=== PATIENT | female | born 1995 | race African-American/Black ===

== ENCOUNTER 2017-12-03 04:52 | Emergency (ER) | payer SELFPAY ==
[2017-12-03 05:01] VITALS: BP 114/70; PULSE 77; RESP 20; O2SAT 98
[2017-12-03 05:33] LABS: AUTOMATED NEUTROPHIL # 4.4 TH/MM3 (1.8-7.7); BASOPHIL # 0.1 TH/MM3 (0-0.2); BASOPHIL % 0.9 % (0.0-2.0); EOSINOPHIL # 0.1 TH/MM3 (0-0.4); EOSINOPHIL % 0.8 % (0.0-4.0); HEMATOCRIT 34.7 % (35.0-46.0); HEMOGLOBIN 11.5 GM/DL (11.6-15.3); LYMPH % 17.4 % (9.0-44.0); MEAN CELL VOLUME 81.3 FL (80.0-100.0); MEAN CORPUSCULAR HEMOGLOBIN 27.1 PG (27.0-34.0); MEAN CORPUSCULAR HGB CONC 33.3 % (32.0-36.0); MEAN PLATELET VOLUME 7.7 FL (7.0-11.0); MONO % 6.8 % (0.0-8.0); MONOCYTE # 0.4 TH/MM3 (0-0.9); NEUT % 74.1 % (16.0-70.0); PLATELET COUNT 335 TH/MM3 (150-450); RED BLOOD COUNT 4.26 MIL/MM3 (4.00-5.30); RED CELL DISTRIBUTION WIDTH 14.5 % (11.6-17.2)
[2017-12-03 06:22] LABS: ALBUMIN 3.7 GM/DL (3.4-5.0); ALT (GPT) 16 U/L (9-42); AST (GOT) 20 U/L (16-38); BICARBONATE 25.2 MEQ/L (21.0-32.0); BLOOD UREA NITROGEN 10 MG/DL (7-18); CALCIUM 8.4 MG/DL (8.5-10.1); CHLORIDE 107 MEQ/L (98-107); CREATININE 0.71 MG/DL (0.50-1.00); GLOMERULAR FILTRATION RATE 105 ML/MIN (>89); GLUCOSE,RANDOM 103 MG/DL (74-106); SODIUM (NA) 140 MEQ/L (136-145)
[2017-12-03 06:24] LABS: ACETAMINOPHEN LESS THAN 2.0 MCG/ML (10.0-30.0)
[2017-12-03 06:30] VITALS: BP 122/79; PULSE 67; RESP 18; O2SAT 100
[2017-12-03] MEDS ORDERED: SODIUM CHLOR 0.9% 1000 ML INJ 1,000 ML IV ONE (06:30)
[2017-12-03 06:32] LABS: ALKALINE PHOSPHATASE 83 U/L (45-117); TOTAL BILIRUBIN ADULT 0.3 MG/DL (0.2-1.0); TOTAL PROTEIN 7.5 GM/DL (6.4-8.2)
--- NOTE | 2017-12-03 06:49 | PD ---
HPI . Intoxication Chief Complaint: Alcohol/Drug Intoxication Time Seen by Provider: 04:55 Travel History International Travel<30 days: No Contact w/Intl Traveler<30days: No Traveled to known affect area: No History of Present Illness HPI 22-year-old female presents with intoxicated via EMS. Limited historian secondary to level of intoxication. No obvious trauma PFSH Past Medical History Narrative Medical Unable to obtain Medical History: Unable to Obtain Tetanus Vaccination: Unknown ?: Unknown Past Surgical History Surgical History: Unable to Obtain Social History Alcohol Use: Yes Tobacco Use: No Substance Use: No (denies) Allergies-Medications (Allergen,Severity, Reaction): Coded Allergies: No Known Allergies (Unverified , 12/03/17) Reported Meds & Prescriptions Reported Meds & Active Scripts Active Active Prescriptions or Reported Medications Unobtainable Narrative Medication Unable to obtain Review of Systems ROS Limitations: Intoxication, Altered Mental Status Physical Exam Exam Limitations: Intoxication, Altered Mental Status Narrative GENERAL: Intoxicated, maintaining her own airway, responding to similar SKIN: Warm and dry. Color is normal no diaphoresis cyanosis or pallor HEAD: Atraumatic. Normocephalic. EYES: Pupils equal and round. No scleral icterus. No injection or drainage. ENT: No nasal bleeding or discharge. Mucous membranes pink and moist. NECK: Trachea midline. No JVD. CARDIOVASCULAR: Regular rate and rhythm. RESPIRATORY: No accessory muscle use. Clear to auscultation. Breath sounds equal bilaterally. GASTROINTESTINAL: Abdomen soft, non-tender, nondistended. Hepatic and splenic margins not palpable. MUSCULOSKELETAL: Extremities without clubbing, cyanosis, or edema. No obvious deformities. NEUROLOGICAL: Moving all 4 extremities spontaneously, responding easily to painful stimuli and intermittently to verbal stimuli PSYCHIATRIC: Unable to assess secondary to level of intoxication Data Data Last Documented VS Vital Signs Date Time Temp Pulse Resp B/P (MAP) Pulse Ox O2 Delivery O2 Flow Rate FiO2 12/03/17 05:01 77 20 114/70 (85) 98 Orders Orders Electrocardiogram (12/03/17 04:55) Complete Blood Count With Diff (12/03/17 04:55) Comprehensive Metabolic Panel (12/03/17 04:55) Thyroid Stimulating Hormone (12/03/17 04:55) Urinalysis - C+S If Indicated (12/03/17 04:55) Blood Glucose (12/03/17 04:55) Ecg Monitoring (12/03/17 04:55) Iv Access Insert/Monitor (12/03/17 04:55) Oximetry (12/03/17 04:55) Drug Screen, Random Urine (12/03/17 04:55) Alcohol (Ethanol) (12/03/17 04:55) Tylenol (Acetaminophen) (12/03/17 04:55) Salicylates (Aspirin) (12/03/17 04:55) Beta Hcg (Quant/Titer) (12/03/17 04:55) Sodium Chlor 0.9% 1000 Ml Inj (Ns 1000 M (12/03/17 06:30) Labs Laboratory Tests Test 12/03/17 05:15 12/03/17 06:10 White Blood Count 6.0 TH/MM3 Red Blood Count 4.26 MIL/MM3 Hemoglobin 11.5 GM/DL Hematocrit 34.7 % Mean Corpuscular Volume 81.3 FL Mean Corpuscular Hemoglobin 27.1 PG Mean Corpuscular Hemoglobin Concent 33.3 % Red Cell Distribution Width 14.5 % Platelet Count 335 TH/MM3 Mean Platelet Volume 7.7 FL Neutrophils (%) (Auto) 74.1 % Lymphocytes (%) (Auto) 17.4 % Monocytes (%) (Auto) 6.8 % Eosinophils (%) (Auto) 0.8 % Basophils (%) (Auto) 0.9 % Neutrophils # (Auto) 4.4 TH/MM3 Lymphocytes # (Auto) 1.0 TH/MM3 Monocytes # (Auto) 0.4 TH/MM3 Eosinophils # (Auto) 0.1 TH/MM3 Basophils # (Auto) 0.1 TH/MM3 CBC Comment DIFF FINAL Differential Comment Blood Urea Nitrogen 10 MG/DL Creatinine 0.71 MG/DL Random Glucose 103 MG/DL Total Protein 7.5 GM/DL Albumin 3.7 GM/DL Calcium Level 8.4 MG/DL Alkaline Phosphatase 83 U/L Aspartate Amino Transf (AST/SGOT) 20 U/L Alanine Aminotransferase (ALT/SGPT) 16 U/L Total Bilirubin 0.3 MG/DL Sodium Level 140 MEQ/L Potassium Level 3.6 MEQ/L Chloride Level 107 MEQ/L Carbon Dioxide Level 25.2 MEQ/L Anion Gap 8 MEQ/L Estimat Glomerular Filtration Rate 105 ML/MIN Thyroid Stimulating Hormone 3rd Gen 0.659 uIU/ML Human Chorionic Gonadotropin, Quant LESS THAN 1 MIU/ML Salicylates Level LESS THAN 1.7 MG/DL Acetaminophen Level LESS THAN 2.0 MCG/ML Ethyl Alcohol Level 146 MG/DL MDM Medical Decision Making Medical Screen Exam Complete: Yes Emergency Medical Condition: Yes Medical Record Reviewed: Yes Differential Diagnosis Intoxication, altered mental status Narrative Course Awaiting laboratory examinations. Further history reveals patient is drinking copious amounts of alcohol at a constitution party. No history of other ingestions. Patient signed out to oncoming ED attending, awaiting further evaluation and sobriety Diagnosis Primary Impression: Altered mental status Qualified Codes: R41.82 - Altered mental status, unspecified Additional Impression: Alcohol intoxication Qualified Codes: F10.929 - Alcohol use, unspecified with intoxication, unspecified Scripts Unable to Obtain Active Prescriptions or Reported Meds Baldo Carbajal MD Dec 03, 2017 06:49
[2017-12-03 06:59] LABS: BILIRUBIN, URINE NEG (NEG); BLOOD, URINE NEG (NEG); GLUCOSE,URINE NEG (NEG); KETONE, URINE NEG (NEG); MUCUS URINE FEW /lpf (OCC); NITRITE,URINE NEG (NEG); PH, URINE 6.5 (5.0-8.5); SQUAMOUS EPITHELIAL CELL URINE 1 /hpf (0-5); URINE COLOR YELLOW (YELLW/STRAW); URINE LEUKOCYTE ESTERASE TRACE (NEG)
[2017-12-03 07:05] VITALS: BP 109/69; PULSE 76; RESP 15; TEMP 97.8; O2SAT 100
--- NOTE | 2017-12-03 09:13 | PD ---
Physical Exam Narrative Receive sign out to reevaluate after she samia up. 22yo F with no PMH here with alcohol intoxication. Pt is currently sober and denies any complaints. No signs of trauma. Neuro exam is unremarkable. AAOx3. No focal neurologic deficits. Labs reviewed, no leukocytosis. H/H 11.5 /34.7. CMP unremarkable. negative. Blood alcohol elevated at 146. Pt is not a chronic alcohol abuser so this is high for her. Acetaminophen and salicylate negative. Utox negative. UA negative. Vital signs stable. Pt's father is here to take her home. Return precautions given. Data Data Last Documented VS Vital Signs Date Time Temp Pulse Resp B/P (MAP) Pulse Ox O2 Delivery O2 Flow Rate FiO2 12/03/17 07:05 76 15 100 Room Air 12/03/17 07:05 97.8 109/69 (82) Orders Orders Electrocardiogram (12/03/17 04:55) Complete Blood Count With Diff (12/03/17 04:55) Comprehensive Metabolic Panel (12/03/17 04:55) Thyroid Stimulating Hormone (12/03/17 04:55) Urinalysis - C+S If Indicated (12/03/17 04:55) Blood Glucose (12/03/17 04:55) Ecg Monitoring (12/03/17 04:55) Iv Access Insert/Monitor (12/03/17 04:55) Oximetry (12/03/17 04:55) Drug Screen, Random Urine (12/03/17 04:55) Alcohol (Ethanol) (12/03/17 04:55) Tylenol (Acetaminophen) (12/03/17 04:55) Salicylates (Aspirin) (12/03/17 04:55) Beta Hcg (Quant/Titer) (12/03/17 04:55) Sodium Chlor 0.9% 1000 Ml Inj (Ns 1000 M (12/03/17 06:30) Labs Laboratory Tests Test 12/03/17 05:15 12/03/17 06:10 White Blood Count 6.0 TH/MM3 Red Blood Count 4.26 MIL/MM3 Hemoglobin 11.5 GM/DL Hematocrit 34.7 % Mean Corpuscular Volume 81.3 FL Mean Corpuscular Hemoglobin 27.1 PG Mean Corpuscular Hemoglobin Concent 33.3 % Red Cell Distribution Width 14.5 % Platelet Count 335 TH/MM3 Mean Platelet Volume 7.7 FL Neutrophils (%) (Auto) 74.1 % Lymphocytes (%) (Auto) 17.4 % Monocytes (%) (Auto) 6.8 % Eosinophils (%) (Auto) 0.8 % Basophils (%) (Auto) 0.9 % Neutrophils # (Auto) 4.4 TH/MM3 Lymphocytes # (Auto) 1.0 TH/MM3 Monocytes # (Auto) 0.4 TH/MM3 Eosinophils # (Auto) 0.1 TH/MM3 Basophils # (Auto) 0.1 TH/MM3 CBC Comment DIFF FINAL Differential Comment Blood Urea Nitrogen 10 MG/DL Creatinine 0.71 MG/DL Random Glucose 103 MG/DL Total Protein 7.5 GM/DL Albumin 3.7 GM/DL Calcium Level 8.4 MG/DL Alkaline Phosphatase 83 U/L Aspartate Amino Transf (AST/SGOT) 20 U/L Alanine Aminotransferase (ALT/SGPT) 16 U/L Total Bilirubin 0.3 MG/DL Sodium Level 140 MEQ/L Potassium Level 3.6 MEQ/L Chloride Level 107 MEQ/L Carbon Dioxide Level 25.2 MEQ/L Anion Gap 8 MEQ/L Estimat Glomerular Filtration Rate 105 ML/MIN Thyroid Stimulating Hormone 3rd Gen 0.659 uIU/ML Human Chorionic Gonadotropin, Quant LESS THAN 1 MIU/ML Salicylates Level LESS THAN 1.7 MG/DL Acetaminophen Level LESS THAN 2.0 MCG/ML Ethyl Alcohol Level 146 MG/DL Urine Color YELLOW Urine Turbidity CLEAR Urine pH 6.5 Urine Specific [place] 1.019 Urine Protein TRACE mg/dL Urine Glucose (UA) NEG mg/dL Urine Ketones NEG mg/dL Urine Occult Blood NEG Urine Nitrite NEG Urine Bilirubin NEG Urine Urobilinogen LESS THAN 2.0 MG/DL Urine Leukocyte Esterase TRACE Urine RBC LESS THAN 1 /hpf Urine WBC 1 /hpf Urine Squamous Epithelial Cells 1 /hpf Urine Mucus FEW /lpf Microscopic Urinalysis Comment CATH-CULT NOT IND Urine Opiates Screen NEG Urine Barbiturates Screen NEG Urine Amphetamines Screen NEG Urine Benzodiazepines Screen NEG Urine Cocaine Screen NEG Urine Cannabinoids Screen NEG MDM Supervised Visit with HOLLY: No Diagnosis Primary Impression: Alcohol intoxication Qualified Codes: F10.929 - Alcohol use, unspecified with intoxication, unspecified Patient Instructions: General Instructions Departure Forms: Tests/Procedures Additional Instruction: Please follow up with your primary care physician. Return to the ED if symptoms worsen. Med/Other Pt SpecificInfo: No Change to Meds Scripts No Active Prescriptions or Reported Meds Disposition: 01 DISCHARGE HOME Condition: Stable Martha Aponte DO Dec 03, 2017 09:13
--- NOTE | 2017-12-03 09:14 | EKG ---
Date Performed: 12/03/2017 Time Performed: 05:05:30 PTAGE: 22 years EKG: Sinus rhythm POSSIBLE RIGHT VENTRICULAR CONDUCTION DELAY BORDERLINE ECG NO PREVIOUS TRACING DOCTOR: Albert Shetty Interpretating Date/Time 12/03/2017 09:13:58
[2017-12-03 09:21] VITALS: BP 115/69; TEMP 97.7
== END 2017-12-03 09:21 | disposition home or self-care (01) ==
LOC: NEPE 04:52
DX: F10.129 Alcohol abuse with intoxication, unspecified (principal); R41.82 Altered mental status, unspecified; Y90.6 Blood alcohol level of 120-199 mg/100 ml; R94.31 Abnormal electrocardiogram [ECG] [EKG]
CPT/HCPCS: 80053; 80307; 81001; 84443; 84702; 85025; 93005; 96360; 99284; J7030